=== PATIENT | male | born 1960 | race Caucasian/White ===

== ENCOUNTER → 2024-10-15 14:22 | Outpatient (BNVA) | payer MEDICARE, SELFPAY | PROVIDERS: PCP Naturopath; Referring Provider Naturopath; Visit Provider Podiatrist | DX: B07.0 Plantar wart (principal); L84 Corns and callosities; Q82.8 Other specified congenital malformations of skin | CPT/HCPCS: 17110 ==

== ENCOUNTER → 2024-11-26 13:00 | Outpatient (BNVA) | payer MEDICARE, SELFPAY | PROVIDERS: PCP Naturopath; Referring Provider Naturopath; Visit Provider Podiatrist | DX: B07.0 Plantar wart (principal); L84 Corns and callosities; Q82.8 Other specified congenital malformations of skin; M20.41 Other hammer toe(s) (acquired), right foot; M20.42 Other hammer toe(s) (acquired), left foot | CPT/HCPCS: 17110 ==

== ENCOUNTER → 2025-01-22 12:55 | Outpatient (BNVA) | payer MEDICARE, SELFPAY | PROVIDERS: PCP Naturopath; Referring Provider Naturopath; Visit Provider Podiatrist | DX: B07.9 Viral wart, unspecified (principal); L84 Corns and callosities; Q82.8 Other specified congenital malformations of skin; M20.41 Other hammer toe(s) (acquired), right foot; M20.42 Other hammer toe(s) (acquired), left foot | CPT/HCPCS: 11305 ==

== ENCOUNTER → 2025-03-12 13:04 | Outpatient (BNVA) | payer MEDICARE, SELFPAY | PROVIDERS: PCP Naturopath; Referring Provider Naturopath; Visit Provider Podiatrist | DX: B07.0 Plantar wart (principal); L84 Corns and callosities | CPT/HCPCS: 17110; 99213 ==